=== PATIENT | female | born 1990 | race Caucasian/White ===

== ENCOUNTER → 2016-12-14 | Outpatient (CLI) | payer OTHER, MEDICAID ==
[~2016-12-14] MED LIST: CELE40TA PO; SERO100T PO
== END ==
LOC: HPND 09:56
PROVIDERS: ATTEND Obstetrics & Gynecology
DX: O99.341 Other mental disorders complicating pregnancy, first trimester (principal); Z3A.10 10 weeks gestation of pregnancy
CPT/HCPCS: 76801; 76817

== ENCOUNTER → 2016-12-27 | Day surgery (SDC) | payer OTHER, MEDICAID ==
--- NOTE | 2016-12-26 11:38 | MH ---
cc: HUMBERTO CABRERA MD DATE OF ADMISSION: 12/27/2016 REASON FOR ADMISSION This patient is a 26-year-old female. She is 2, para 0, who is being admitted to [facility] for therapy of incomplete . HISTORY OF PRESENT ILLNESS The patient is well-known to our practice but seen earlier and had a confirmed demise by ultrasound verification. We discussed conservative management versus D&C, but the patient expressed desire to undergo dilation and evacuation. PAST MEDICAL HISTORY Medical history is significant for having history of depression and she also has a history of hepatitis C. MEDICATION She is present on citalopram 40 mg q.d. and Seroquel 100 mg q.d. SOCIAL HISTORY She admits to smoking marijuana. ALLERGIES No known allergies to medication. REVIEW OF SYSTEMS Essentially noncontributory. PHYSICAL EXAMINATION GENERAL: The patient was seen well-developed, well-nourished, in no acute distress. VITAL SIGNS: Blood pressure was 124/72, pulse 70, respirations 12. HEENT: Negative. CHEST: Clear to auscultation. CARDIOVASCULAR: Regular rate. ABDOMEN: Soft. Bowel sounds were positive. PELVIC: The uterus was slightly enlarged, 8 to 10 weeks in size. There is no adnexal masses palpable. External genitalia was within normal limits. EXTREMITIES: Revealed no cyanosis, clubbing or edema. NEUROPSYCHIATRIC: The patient was oriented x 3. She had no gross neurocranial deficit. IMPRESSION ON ADMISSION Incomplete of approximately 8 weeks. PLAN Dilatation and curettage via suction. Humberto Cabrera MD JSG/TLL /11:22 AM /11:30 AM
[~2016-12-27] VITALS: Ht 165.1 cm; Wt 72.9 kg
[~2016-12-27] MED LIST changes: +*morphine SULFATE 8 MG/ML PERIprocedure ONLY ONE; +ACETAMINOPHEN 1000 MG/100 ML VIAL IV ONE; +AUGM875T3 PO; +CHLORHEXIDINE GLUCONATE 2 % 1 PACK (2 CLOTHS) TOPICAL PRN; +DEXAMETHASONE SOD PHOS 4 MG/ML VIAL ONE; +DO NOT ADM ANY ANTICOAGULANT DRUGS PRN; +FAMOTIDINE 20 MG/2 ML VIAL ONE; +FE FCAP3 PO; +HYDR-4107 PO; +INSULIN HUMAN REGULAR 1,000 UNITS/10 ML VIAL SQ PRN; +LACTATED RINGER'S 1000 ML INJ 1,000 ML IV ONE; +LACTATED RINGER'S 1000 ML IV PRN; +LORazepam 2 MG/ML VIAL ONE; +METOPROLOL TARTRATE 25 MG TAB PO PRN; +MIDAZOLAM HCL 2 MG/2 ML VIAL ONE; +NAPR500 PO; +ONDANSETRON HCL 4 MG/2 ML VIAL IV PUSH ONE; +ONDANSETRON HCL 4 MG/2 ML VIAL IV PUSH PRN; +OXYTOCIN 10 UNIT/ML AMP ONE; +POVIDONE IODINE 5% (ANTISEPSIS KIT) 4 APPLICATIONS EACH NARE PRN; +PROPOFOL 200 MG/20 ML AMP IV ONE; +SODIUM CHLORID 0.9% 500 ML IV PRN; +ceFAZolin 2 GM PREMIX 50 ML IV SCH; +fentaNYL CITRATE 250 MCG/5 ML AMP ONE; +oxyCODONE/ACETAMINOPHEN 5 MG/325 MG TAB PO PRN
[2016-12-27 05:47] VITALS: BP 111/70; PULSE 87; RESP 20; TEMP 99.8; O2SAT 98
[2016-12-27 08:55] VITALS: BP 118/64; PULSE 96; RESP 18; TEMP 97.8; O2SAT 96
--- NOTE | 2016-12-27 13:32 | MP ---
cc: HUMBERTO CABRERA MD DATE OF SURGERY 12/27/2016 PREOPERATIVE DIAGNOSIS Missed POSTOPERATIVE DIAGNOSIS Missed OPERATION Dilatation and curettage using both suction and sharp curetting. SURGEON Humberto Cabrera MD ANESTHESIA General ESTIMATED BLOOD LOSS 150 cc FINDINGS Consistent with an 8-10 week intrauterine demise COMPLICATIONS None HAND FLATWORK FINISHER none PROCEDURE The patient was prepped and draped in the dorsolithotomy position. A weighted speculum was placed in the posterior vaginal vault. The anterior lip of the cervix grasped with a single toothed tenaculum. The cervix was dilated up using Alexis dilators and a #8 suction curette was entered into the endometrial cavity and suction curettings were taken after which a sharp curetting instrument was entered into the endometrial cavity and then sharp curettings were taken. After good hemostasis was noted, the tenaculum and speculum removed. The patient returned to the Recovery Room in stable condition. MD TONI Erazo/DJL /7:32 AM /1:33 PM
== END | disposition home or self-care (01) ==
LOC: HSDC 05:03
PROVIDERS: ATTEND Obstetrics & Gynecology
DX: O03.4 Incomplete spontaneous abortion without complication (principal); B19.20 Unspecified viral hepatitis C without hepatic coma; F32.9 Major depressive disorder, single episode, unspecified; F12.90 Cannabis use, unspecified, uncomplicated
CPT/HCPCS: 01965; 59812; 88305; J0131; J0690; J1100; J2060; J2250; J2270; J2405; J2590; J3010; J7120

== ENCOUNTER 2016-12-29 20:12 | Emergency (ER) | payer OTHER, MEDICAID ==
[~2016-12-29 20:12] MED LIST changes: -*morphine SULFATE 8 MG/ML PERIprocedure ONLY ONE; -ACETAMINOPHEN 1000 MG/100 ML VIAL IV ONE; -AUGM875T3 PO; -CHLORHEXIDINE GLUCONATE 2 % 1 PACK (2 CLOTHS) TOPICAL PRN; -DEXAMETHASONE SOD PHOS 4 MG/ML VIAL ONE; -DO NOT ADM ANY ANTICOAGULANT DRUGS PRN; -FAMOTIDINE 20 MG/2 ML VIAL ONE; -FE FCAP3 PO; -HYDR-4107 PO; -INSULIN HUMAN REGULAR 1,000 UNITS/10 ML VIAL SQ PRN; -LACTATED RINGER'S 1000 ML INJ 1,000 ML IV ONE; -LACTATED RINGER'S 1000 ML IV PRN; -LORazepam 2 MG/ML VIAL ONE; -METOPROLOL TARTRATE 25 MG TAB PO PRN; -MIDAZOLAM HCL 2 MG/2 ML VIAL ONE; -NAPR500 PO; -ONDANSETRON HCL 4 MG/2 ML VIAL IV PUSH ONE; -ONDANSETRON HCL 4 MG/2 ML VIAL IV PUSH PRN; -OXYTOCIN 10 UNIT/ML AMP ONE; -POVIDONE IODINE 5% (ANTISEPSIS KIT) 4 APPLICATIONS EACH NARE PRN; -PROPOFOL 200 MG/20 ML AMP IV ONE; -SODIUM CHLORID 0.9% 500 ML IV PRN; -ceFAZolin 2 GM PREMIX 50 ML IV SCH; -fentaNYL CITRATE 250 MCG/5 ML AMP ONE; -oxyCODONE/ACETAMINOPHEN 5 MG/325 MG TAB PO PRN
[2016-12-29 20:15] VITALS: BP 186/89; PULSE 97; RESP 16; TEMP 98.5; O2SAT 99
[2016-12-30] MEDS ORDERED: KETOROLAC TROMETHAMINE 30 MG/ML (IVP) VIAL IV PUSH ONE (00:15)
[2016-12-30] MEDS ORDERED: MORPHINE SULFATE 4 MG/ML INJ IV PUSH ONE (00:15)
[2016-12-30] MEDS ORDERED: ONDANSETRON HCL 4 MG/2 ML VIAL IV PUSH ONE (00:15)
[2016-12-30 00:46] LABS: BASOPHIL % 0.3 % (0.0-2.0); EOSINOPHIL # 0.2 TH/MM3 (0-0.4); HEMATOCRIT 30.5 % (35.0-46.0); HEMO FLAGS DIFF FINAL; LYMPH % 33.5 % (9.0-44.0); LYMPHOCYTE # 3.5 TH/MM3 (1.0-4.8); MEAN CELL VOLUME 90.4 FL (80.0-100.0); MEAN CORPUSCULAR HEMOGLOBIN 30.8 PG (27.0-34.0); MONO % 6.3 % (0.0-8.0); NEUT % 57.9 % (16.0-70.0); PLATELET COUNT 169 TH/MM3 (150-450); RED BLOOD COUNT 3.37 MIL/MM3 (4.00-5.30); WHITE BLOOD COUNT 10.4 TH/MM3 (4.0-11.0)
[2016-12-30] MEDS ORDERED: MORPHINE SULFATE 8 MG/ML INJ IV PUSH ONE (01:00)
[2016-12-30 01:08] LABS: BICARBONATE 27.4 MEQ/L (21.0-32.0); POTASSIUM 3.7 MEQ/L (3.5-5.1)
--- NOTE | 2016-12-30 03:55 | PD ---
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 She had a D&C done on December 26 for an incomplete AB. She states since that time she's had persistent abdominal pain bleeding cramping. Today she started having nausea some lightheaded so she came to the emergency department. History Past Medical History Medical History: Denies Significant Hx Social History Alcohol Use: No Tobacco Use: Yes (1/2) Allergies-Medications (Allergen,Severity, Reaction): Coded Allergies: No Known Allergies (Unverified , 12/29/16) Reported Meds & Prescriptions Reported Meds & Active Scripts Active Reported Celexa (Citalopram Hydrobromide) 40 Mg Tab 40 Mg PO DAILY Seroquel (Quetiapine Fumarate) 100 Mg Tab 100 Mg PO DAILY Review of Systems Except as stated in HPI: all other systems reviewed are Neg Physical Exam Narrative GENERAL: Well-appearing 26 showed woman, no acute distress. SKIN: Focused skin assessment warm/dry. HEAD: Atraumatic. Normocephalic. CARDIOVASCULAR: Regular rate and rhythm. No murmur appreciated. RESPIRATORY: No accessory muscle use. Clear to auscultation. Breath sounds equal bilaterally. GASTROINTESTINAL: Mild suprapubic abdominal pain. NEUROLOGICAL: Awake and alert. No obvious cranial nerve deficits. Motor grossly within normal limits. Normal speech. PELVIC: Normal external female genitalia. Scant amount of bleeding. Minimal cervical motion tenderness. No palpable uterine enlargement or adnexal masses. Data Data Last Documented VS Vital Signs Date Time Temp Pulse Resp B/P Pulse Ox O2 Delivery O2 Flow Rate FiO2 12/29/16 20:15 98.5 97 16 186/89 99 Room Air Orders Complete Blood Count With Diff (12/30/16 00:12) Basic Metabolic Panel (Bmp) (12/30/16 00:12) Beta Hcg (Quant/Titer) (12/30/16 00:12) Iv Access Insert/Monitor (12/30/16 00:12) Ketorolac Inj (Toradol Inj) (12/30/16 00:15) Morphine Inj (Morphine Inj) (12/30/16 00:15) Ondansetron Inj (Zofran Inj) (12/30/16 00:15) Morphine Inj (Morphine Inj) (12/30/16 01:00) Us Pelvis Preg W Transvaginal (12/30/16 ) Ibuprofen (Motrin) (12/30/16 04:00) Labs Laboratory Tests Test 12/30/16 00:15 White Blood Count 10.4 TH/MM3 Red Blood Count 3.37 MIL/MM3 Hemoglobin 10.4 GM/DL Hematocrit 30.5 % Mean Corpuscular Volume 90.4 FL Mean Corpuscular Hemoglobin 30.8 PG Mean Corpuscular Hemoglobin 34.0 % Concent Red Cell Distribution Width 13.0 % Platelet Count 169 TH/MM3 Mean Platelet Volume 9.2 FL Neutrophils (%) (Auto) 57.9 % Lymphocytes (%) (Auto) 33.5 % Monocytes (%) (Auto) 6.3 % Eosinophils (%) (Auto) 2.0 % Basophils (%) (Auto) 0.3 % Neutrophils # (Auto) 6.0 TH/MM3 Lymphocytes # (Auto) 3.5 TH/MM3 Monocytes # (Auto) 0.7 TH/MM3 Eosinophils # (Auto) 0.2 TH/MM3 Basophils # (Auto) 0.0 TH/MM3 CBC Comment DIFF FINAL Differential Comment Sodium Level 141 MEQ/L Potassium Level 3.7 MEQ/L Chloride Level 105 MEQ/L Carbon Dioxide Level 27.4 MEQ/L Anion Gap 9 MEQ/L Blood Urea Nitrogen 4 MG/DL Creatinine 0.79 MG/DL Estimat Glomerular Filtration 88 ML/MIN Rate Random Glucose 79 MG/DL Calcium Level 8.6 MG/DL Human Chorionic Gonadotropin, 3081 MIU/ML Quant [facility] Medical Decision Making Medical Screen Exam Complete: Yes Emergency Medical Condition: Yes Interpretation(s) LABS: CBC is unremarkable. CMP is unremarkable. HCG 3081 Pelvic ultrasound: Complex heterogenous mass expanding endometrial cavity measuring up to 7.4 cm. No increased vascularity. Large blood clot could be the leading consideration. Retained products of conception felt less likely though not entirely excluded. Differential Diagnosis Retained products, endometritis, infection, UTI, other Narrative Course Medical decision making 26-year-old woman presents to the emergency department complaining of ongoing suprapubic abdominal pain following D&C. Likely endometritis. We'll check labs , ultrasound to rule out retained products, reassess. Diagnosis Primary Impression: Endometritis Additional Instructions: Take antibiotics as prescribed. Take Naprosyn as needed for pain. Follow-up with your vice president business development on Saturday. Return to the emergency department for any new or worsening symptoms. Med/Other Pt SpecificInfo: Prescription(s) given Scripts Amoxicillin-Clavulanate (Augmentin)875-125 Mg Tab1 Tab PO BID 14 Days Ref 0 Prov:Herve Levy MD 12/30/16 Naproxen (Naprosyn)500 Mg Psf491 Mg PO BID PRN (PAIN SCALE 1 TO 10) #20 TAB Prov:Herve Levy MD 12/30/16 Disposition: 01 DISCHARGE HOME Condition: Stable Herve Levy MD Dec 30, 2016 03:55
[2016-12-30] MEDS ORDERED: IBUPROFEN 600 MG TAB PO ONE (04:00)
--- NOTE | 2016-12-30 04:10 | RADRPT ---
EXAM DATE/TIME: 12/30/2016 03:07 [place] COMPARISON: US OB PELVIS PREG <14 WKS FETUS W/TV, December 14, 2016, 10:09. INDICATIONS : Pelvic pain and bleeding. Post dilation and curettage 12/27/14. LAB(S): Beta-hC MEDICAL HISTORY : . Hepatitis C. SURGICAL HISTORY : D&C. ENCOUNTER: Initial ACUITY: 1 day PAIN SCORE: 7/10 LOCATION: Bilateral pelvis MEASUREMENTS: UTERUS: 11.2 x 7.5 x 6.7 cm ENDOMETRIAL STRIPE: >20 mm RIGHT OVARY: 4.4 x 2.1 x 1.3 cm LEFT OVARY: 4.7 x 2.8 x 4.1 cm FREE FLUID: No CROWN RUMP LENGTH: not seen FHR: not seen FINDINGS: The patient has a history of recent D&C December 27 for demise. Uterus is enlarged and there is a h eterogeneous echogenic mass centered at the endometrial cavity. This appears to extend endometrial ca vity measures 5.4 x 7.4 cm. No increased blood flow is seen on color Doppler imaging. A 1.2 cm simple cyst of the right ovary is noted. There is a tiny cyst of the left ovary identified measuring 16 mm, hypoechoic without blood flow. There is no free fluid.. CONCLUSION: A complex heterogeneous mass expanding endometrial cavity measuring up to 7.4 cm. There is no increas ed vascularity. A large blood clot would be the leading consideration. Retained products of conceptio n is felt less likely though not entirely excluded. Joe Spring MD on December 30, 2016 at 4:06 Board Certified Radiologist. This report was verified electronically.
[2016-12-30] MEDS ORDERED: NAPR500 PO (04:21)
[2016-12-30] MEDS ORDERED: AUGM875T3 PO (04:21)
[2016-12-31] MEDS ORDERED: FE FCAP3 PO (15:36)
[2016-12-31] MEDS ORDERED: HYDR-4107 PO (15:38)
== END 2016-12-30 05:00 | disposition home or self-care (01) ==
LOC: NEPD 20:12 → NEPC 12-30 05:00
DX: O03.0 Genital tract and pelvic infection following incomplete spontaneous abortion (principal); N71.9 Inflammatory disease of uterus, unspecified
CPT/HCPCS: 76801; 76817; 80048; 84702; 85025; 96374; 96375; 99285; J1885; J2270; J2405

== ENCOUNTER 2017-05-28 13:46 | Emergency (ER) | payer MEDICAID, OTHER ==
[~2017-05-28] VITALS: Ht 165.1 cm; Wt 69.2 kg
[~2017-05-28 13:46] MED LIST changes: +FE FCAP3 PO
[2017-05-28 13:59] LABS: BLOOD, URINE TRACE (NEG); GLUCOSE,URINE NEG (NEG); KETONE, URINE NEG (NEG); NITRITE,URINE POS (NEG); PH, URINE 5.5 (5.0-8.5)
[2017-05-28 14:00] VITALS: BP 118/64; PULSE 92; RESP 18; TEMP 98.6; O2SAT 98
[2017-05-28 14:08] LABS: METHOD OF COLLECTION CLEAN CATCH
[2017-05-28 14:09] LABS: BACTERIA, URINE FEW /hpf; COMMENT (UR) CULTURE INDICATED; CULTURE IF INDICATED CULTURE INDICATED; RBC, URINE 0-3 /hpf (0-3); SQUAMOUS EPITHELIAL CELL URINE 0-5 /hpf (0-5); URINE COLOR YELLOW (YELLW/STRAW)
[2017-05-28] MEDS ORDERED: CEPH-460 PO (14:50)
[2017-05-28] MEDS ORDERED: MUPI2%T TOPICAL (14:50)
--- NOTE | 2017-05-28 14:51 | PD ---
HPI Chief Complaint: Complaint Time Seen by Provider: 14:35 Travel History International Travel<30 days: No Contact w/Intl Traveler<30days: No Traveled to known affect area: No History of Present Illness HPI 26 -year-old female here with dysuria, frequency, urgency X 4 days. She is also reporting multiple pustules to her bilateral buttocks times one week. She denies fever or chills. She denies abdominal pain, vaginal discharge, flank pain. Severity is moderate. Slightly relieved with [id number] usual. Last menstrual period approximately 5 weeks ago. PFSH Past Medical History Anxiety: Yes Depression: Yes Diminished Hearing: No Immune Disorder: Yes (HEP C) Immunizations Current: Yes Influenza Vaccination: No ?: Unknown LMP: 4 1/2 weeks ago Past Surgical History Surgical History: No Previous Surgery Other Surgery: No Social History Alcohol Use: Yes (occ) Tobacco Use: Yes (/2) Substance Use: No (HX ) Allergies-Medications (Allergen,Severity, Reaction): Coded Allergies: No Known Allergies (Unverified Adverse Reaction, Unknown, 05/28/17) Reported Meds & Prescriptions Reported Meds & Active Scripts Active Fusion Plus (Multi-Vit/Iron-Vitamin C-X42-Zubta Acid-Lacto) 130-75-0.12-1,250- 30 mg Cap 1 Cap PO DAILY Reported Celexa (Citalopram Hydrobromide) 40 Mg Tab 40 Mg PO DAILY Seroquel (Quetiapine Fumarate) 100 Mg Tab 100 Mg PO DAILY Review of Systems Except as stated in HPI: all other systems reviewed are Neg General / Constitutional: No: Fever Gastrointestinal: No: Abdominal Pain Genitourinary: Positive: Urgency, Frequency, Dysuria Physical Exam Narrative GENERAL: Alert female. Nontoxic appearing. SKIN: Numerous erythematous pustules to the lateral buttocks. No induration or fluctuance. HEAD: Normocephalic. CARDIOVASCULAR: Regular rate and rhythm RESPIRATORY: Breath sounds equal bilaterally. No accessory muscle use. GASTROINTESTINAL: Abdomen soft, non-tender, nondistended. BACK: Nontender without obvious deformity. No CVA tenderness. Data Data Last Documented VS Vital Signs Date Time Temp Pulse Resp B/P (MAP) Pulse Ox O2 Delivery O2 Flow Rate FiO2 05/28/17 14:00 98.6 92 18 118/64 (82) 98 Orders Orders Urinalysis - C+S If Indicated (05/28/17 13:50) Ed Urine Pregnancytest Poc (05/28/17 13:50) Urine Culture (05/28/17 13:50) Labs Laboratory Tests Test 05/28/17 13:50 Urine Collection Type CLEAN CATCH Urine Color YELLOW Urine Turbidity CLEAR Urine pH 5.5 Urine Specific [place] 1.003 Urine Protein NEG mg/dL Urine Glucose (UA) NEG mg/dL Urine Ketones NEG mg/dL Urine Occult Blood TRACE Urine Nitrite POS Urine Bilirubin NEG Urine Leukocyte Esterase MOD Urine RBC 0-3 /hpf Urine WBC 25-49 /hpf Urine WBC Clumps FEW Urine Squamous Epithelial Cells 0-5 /hpf Urine Bacteria FEW /hpf Microscopic Urinalysis Comment CULTURE INDICATED Urine Collection Time 13:50 MDM Medical Decision Making Medical Screen Exam Complete: Yes Emergency Medical Condition: Yes Differential Diagnosis UTI, vaginitis, folliculitis, abscess Narrative Course Urine POC positive UA: Positive for nitrates, moderate leukocytes, WBC 25-49, few wbc clumps, few bacteria Diagnosis Primary Impression: UTI (urinary tract infection) Qualified Codes: N30.00 - Acute cystitis without hematuria Additional Impressions: Folliculitis , incidental Referrals: Reprint Sorter Additional Instructions: Make an appointment for follow-up 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
== END 2017-05-28 15:02 | disposition home or self-care (01) ==
LOC: PHED 13:46
DX: N30.00 Acute cystitis without hematuria (principal); B96.20 Unspecified Escherichia coli [E. coli] as the cause of diseases classified elsewhere; L73.9 Follicular disorder, unspecified; Z33.1 Pregnant state, incidental
CPT/HCPCS: 81001; 84703; 87077; 87086; 87186; 99284

== ENCOUNTER 2017-06-17 19:24 | Emergency (ER) | payer SELFPAY ==
[~2017-06-17] VITALS: Ht 165.1 cm; Wt 70.0 kg
[~2017-06-17 19:24] MED LIST changes: +CEPH-460 PO; +MUPI2%T TOPICAL
[2017-06-17 19:26] VITALS: BP 141/65; PULSE 77; RESP 16; TEMP 98.9; O2SAT 100
[2017-06-17] MEDS ORDERED: prenatal PO (19:47)
[2017-06-17] MEDS ORDERED: MACR100C2 PO (19:47)
--- NOTE | 2017-06-17 19:52 | PD ---
HPI Chief Complaint: Related Problem Time Seen by Provider: 19:34 Travel History International Travel<30 days: No Contact w/Intl Traveler<30days: No Traveled to known affect area: No History of Present Illness HPI 26-year-old white female 3 para 0 AB 2 presents with a approximately 6- 8 week . She states that she was diagnosed here in the emergency department 2 weeks ago with . She states that she has not been able to follow-up with a OB doctor yet due to lack of insurance. She states that she is applied for Medicaid but has not come through yet. Patient states that she just wanted to get checked to make sure everything was going well. She was treated for a UTI at her visit 2 weeks ago. She states that her urinary symptoms have resolved. She denies any fever chills. No nausea vomiting. No abdominal pain. No pelvic pain. No vaginal discharge. No vaginal bleeding. She does note some intermittent cramping at times but nothing significant. PFSH Past Medical History Anxiety: Yes Depression: Yes Diminished Hearing: No Immune Disorder: Yes (HEP C) Immunizations Current: Yes Tetanus Vaccination: Unknown ?: : 3 Para: 0 Miscarriage: 2 Past Surgical History Surgical History: No Previous Surgery Other Surgery: No Social History Alcohol Use: Yes (occ) Tobacco Use: Yes (06/18) Substance Use: No (HX ) Allergies-Medications (Allergen,Severity, Reaction): Coded Allergies: No Known Allergies (Unverified , 06/17/17) Reported Meds & Prescriptions Reported Meds & Active Scripts Active Review of Systems General / Constitutional: No: Fever Eyes: No: Visual changes HENT: No: Headaches Cardiovascular: No: Chest Pain or Discomfort Respiratory: No: Shortness of Breath Gastrointestinal: No: Abdominal Pain Genitourinary: No: Dysuria Musculoskeletal: No: Pain Skin: No Rash Neurologic: No: Weakness Psychiatric: No: Depression Endocrine: No: Polydipsia Hematologic/Lymphatic: No: Easy Bruising Physical Exam Narrative GENERAL: Well-developed, well-nourished in no acute distress. Nontoxic appearing. HEAD: Normocephalic, atraumatic. EYES: Pupils equal round and reactive. Extraocular motions intact. No scleral icterus. No injection or drainage. ENT: TMs clear without erythema. The external auditory canals clear. Nose: clear . Posterior pharynx is pink and moist. No tonsillar edema or exudate. Uvula midline. Airway patent. NECK: Trachea midline.Supple, nontender, moves head freely. No central bony tenderness or spasm. CARDIOVASCULAR: Regular rate and rhythm without murmurs, gallops, or rubs. RESPIRATORY: Clear to auscultation. Breath sounds equal bilaterally. No wheezes , rales, or rhonchi. GASTROINTESTINAL: Abdomen soft, non-tender, nondistended. No hepato-splenomegaly , or palpable masses. No guarding. EXTREMITIES: No clubbing, cyanosis, or edema. No joint tenderness, effusion, or edema noted. BACK: Nontender without deformity or crepitance. No flank tenderness. Data Data Last Documented VS Vital Signs Date Time Temp Pulse Resp B/P (MAP) Pulse Ox O2 Delivery O2 Flow Rate FiO2 06/17/17 19:26 98.9 77 16 141/65 (90) 100 Room Air MDM Medical Decision Making Medical Screen Exam Complete: Yes Emergency Medical Condition: Yes Medical Record Reviewed: Yes Differential Diagnosis Differential diagnosis: Early , miscarriage, UTI Narrative Course Patient's history is reassuring. There is no abnormal physical findings. She is not having any bleeding or discharge. I've encouraged her to follow-up with an OB as an outpatient. There is no emergent testing indicated today. This is early Diagnosis Primary Impression: Early stage of Referrals: Hayden Newberry MD 1 week Patient Instructions: General Instructions Additional Instructions: Rest. Increase fluids. Continue your medicines. Follow-up with OB in the next 1-2 weeks. Return to the ER for emergencies. Med/Other Pt SpecificInfo: No Change to Meds Disposition: 01 DISCHARGE HOME Condition: Ollie Parson Jun 17, 2017 19:52
== END 2017-06-17 20:47 | disposition home or self-care (01) ==
LOC: NEPD 19:24
DX: O98.411 Viral hepatitis complicating pregnancy, first trimester (principal); B19.20 Unspecified viral hepatitis C without hepatic coma; O99.341 Other mental disorders complicating pregnancy, first trimester; F32.9 Major depressive disorder, single episode, unspecified; F41.9 Anxiety disorder, unspecified; O99.331 Smoking (tobacco) complicating pregnancy, first trimester; F17.200 Nicotine dependence, unspecified, uncomplicated
CPT/HCPCS: 99282